=== PATIENT | female | born 1935 | race Caucasian/White ===

== ENCOUNTER → 2016-12-12 | Outpatient (CLI) | payer MEDICARE, OTHER ==
[~2016-12-12] MED LIST: ASPIRIN LO-DOSE81 MG PO; CALCIUM 600 +1 EAC6 PO; CENTRUM SILVER1 TAB PO; COUMADIN 4MG **4 MG PO; FISH OIL 1,2001 EAC1 PO; TOPROL XL 5050 MG PO
== END | disposition disaster alternative care site (69) ==
LOC: GRAD 09:02
DX: E05.90 Thyrotoxicosis, unspecified without thyrotoxic crisis or storm (principal); R93.8 Abnormal findings on diagnostic imaging of other specified body structures
CPT/HCPCS: A9516

== ENCOUNTER → 2016-12-20 | Outpatient (CLI) | payer MEDICARE, OTHER | END | disposition disaster alternative care site (69) | LOC: GRAD 12:41 | DX: E05.90 Thyrotoxicosis, unspecified without thyrotoxic crisis or storm (principal) | CPT/HCPCS: A9517 ==